=== PATIENT | male | born 1980 | race Asian ===

== ENCOUNTER 2025-09-19 16:18 | Outpatient (AMB) | payer OTHER, SELFPAY ==
[2025-09-19 16:39] VITALS: BP 142/98; PULSE 85; TEMP 36.3; O2SAT 97; BMI 29.2
--- NOTE | 2025-09-19 16:39 | MHC.PC.OV ---
Vital Signs 09/19/25 16:39 Height 5 ft 11 in Weight 209 lb 6 oz BMI 29.2 BP 142/98 H Blood Pressure Location Lt brachial Position Sitting Pulse 85 Pulse Source Pulse Oximeter Temp 97.3 F Temp Source Temporal Artery Scan Pulse Oximetry (%) 97 Oxygen Delivery Method Room Air Intake Visit Reasons: NEW PATIENT HYPERTENSION Allergies ibuprofen Allergy (Intermediate, Verified 09/19/25 16:42) Facial Swelling Medication List - Last Reconciled 09/19/25 by Goran Ragland MD amlodipine 5 mg (2 x 2.5 mg) PO DAILY Tobacco use date assessed: 09/19/25 Dental Screening Dental Screen Date: 09/19/25 Did you have a dental visit in the last 12 months?: Yes Did you have a dental problem in the last 6 months where you did not have access to dental care?: No Was dental information given to patient?: Patient has dentist HPI HPI Comments History of Present Illness Details 45-year-old male with PMH of retinal tear, HTN presenting to [facility] care and manage his elevated blood pressure. He was diagnosed with hypertension 4-5 years ago with initial symptoms of headache and head heaviness. He was first treated with losartan 25 mg, which was increased to 50 mg without relief. His medication was then changed to a combination of indapamide, enalapril, and amlodipine, which successfully lowered his blood pressure to approximately 117/70 mmHg. [place] moving [place] the [place] in February 2023, he was switched to amlodipine 5 mg with hydrochlorothiazide 25 mg, which was later reduced to amlodipine 2.5 mg and hydrochlorothiazide 12.5 mg, and then to amlodipine 2.5 mg monotherapy. He reports that for the past month his blood pressure has been rising, and he has been experiencing headaches for the past 3-4 days. He has taken Tylenol for the headache with some relief. The patient has a history of a retinal tear in 2004 or 2005 and has been undergoing biannual retinal check-ups since. He has no family history of colon cancer. His vaccinations are up-to-date from [place] and were supplemented with COVID-19 vaccinations in the [place] in 2022. [facility] Surgical History (Updated 09/19/25 @ 16:44 by Arianna Salas CMA) No pertinent past surgical history Family History (Updated 09/19/25 @ 16:45 by Arianna Salas CMA) Father Squamous cell carcinoma of tongue Hypertension Mother Hypertension Social History (Updated 09/19/25 @ 16:44 by Arianna Salas CMA) Household Members: None Housing: Apartment Alcohol intake: never Patient Tobacco Use Status: Never used Tobacco e-Cigarette/Vaping Use: Never Used Use of substances other than those prescribed or required for medical reasons: No service: No Current occupational status: employed Current occupation: Dentist Cognitive needs: No Hearing needs: No Vision needs: Yes Questionnaire PHQ-9 Over the last 2 weeks, how often have you been bothered by any of the following problems? 1. Little interest or pleasure in doing things: not at all 2. Feeling down, depressed, or hopeless: not at all 3. Trouble falling or staying asleep, or sleeping too much: not at all 4. Feeling tired or having little energy: several days 5. Poor appetite or overeating: not at all 6. Feeling bad about yourself - or that you are a failure or have let yourself or your family down: not at all 7. Trouble concentrating on things, such as reading the newspaper or watching television: not at all 8. Moving or speaking so slowly that other people could have noticed. Or the opposite - being so fidgety or restless that you have been moving around a lot more than usual: not at all 9. Thoughts that you would be better off or of hurting yourself in some way: not at all Total score: 1 Depression Screening Interpretation: Positive Depression Screening Done: Yes 96254 - PHQ-9 Billing: Yes Source: Developed by Drs. Ricardo Petty, Rosemary Slater, Ramirez Esqueda and colleagues, with an educational jessenia from [employer]. Thrive Questionnaire Date Thrive assessed: 09/03/25 I am a: Patient What is your living situation today?: I have a steady place to live Within the past 12 months, did the food you bought not last and you didn't have the money to get more?: Never true Within the past 12 months, did you worry whether your food would run out before you got money to buy more?: Never true Do you have trouble paying for medicines?: No Do you have trouble getting transportation to medical appointments?: No Do you have trouble paying your heating and electricity bill?: No Do you have trouble taking care of your child, family member or friend?: No Do you have trouble with day-to-day activities such as bathing, preparing meals, shopping, managing finances, etc.?: No Are you currently unemployed and looking for a job?: No Are you interested in more education?: No Please select the resources that you would like help with: None Currently or been in a relationship where the following occur: No concerns reported THRIVE Score: 0 AUDIT C Alcohol Use Questionnaire (AUDIT-C) 1. How often do you have a drink containing alcohol?: Never 3. How often do you have six or more drinks on one occasion?: Never Total Score: 0 LUNA-7 AMB Questionnaire LUNA-7 Date LUNA - 7 assessed: 09/19/25 Feeling nervous, anxious, or on edge: 0 = Not at all Not being able to stop or control worryin = Not at all Worrying too much about different things: 0 = Not at all Trouble relaxin = Not at all Being so restless that it is hard to sit still: 0 = Not at all Becoming easily annoyed or irritable: 0 = Not at all Feeling afraid as if something awful might happen: 0 = Not at all Total LUNA-7 score (0-4 normal; 5-9 mild; 10-14 moderate; 15-21 severe): 0 Source: Developed by Drs. Ricardo Petty, Rosemary Slater, Ramirez Esqueda and colleagues, with an educational jessenia from [employer]. LUNA-7 Assessment Billing LUNA-7 Assessment Tool: LUNA-7 Assessment 50490 Review of Systems Const Details: As per HPI. Physical exam (Primary Care) Vital Signs: Last Vital Signs Temp 97.3 F 09/19/25 16:39 Pulse 85 09/19/25 16:39 BP 142/98 H 09/19/25 16:39 Pulse Ox 97 09/19/25 16:39 Oxygen Delivery Method Room Air 09/19/25 16:39 BMI result Body Mass Index 29.2 Tobacco/Smoking Status: Tobacco use Status Tobacco use date assessed 09/19/25 09/19/25 16:46 Patient Tobacco Use Status Never used Tobacco 09/19/25 16:46 e-Cigarette/Vaping Use Never Used 11/13/25 16:46 PHQ-9: PHQ-9 Score PHQ-9: Total score 1 09/19/25 16:46 Depression Screening Interpretation: Positive Thrive Assessment: Date of Thrive Assessment Date Thrive assessed 09/03/25 09/19/25 16:46 Currently or been in a relationship where the following occur: No concerns reported Const Other: Pertinent findings are in BOLD GENERAL APPEARANCE NAD, activity normal for age, well developed/ well nourished, no cyanosis, pallor, or diaphoresis. EYES lids/conjunctiva normal. EARS/NOSE/THROAT Mucous membranes moist, nares normal, lips/teeth normal uvula midline without oral pharyngeal erythema, exudate or swelling TMs normal bilaterally. No lymphangitis/lymphedema. HEAD/NECK normocephalic atraumatic, no facial trauma, neck is supple. RESPIRATORY respiratory effort normal, speaks in full sentences, no tripod position, no accessory muscle use. Lungs clear to auscultation without rhonchi, wheezes, rales CARDIAC Regular rate and rhythm, no edema. ABDOMINAL Soft, ND/NT. No evidence of fluid wave. No pulsatile masses on exam, rebound tenderness, Espinoza sign or pain over Mcburney's point. MUSCLES/EXTREMITIES No abnormal range of motion, no swelling. SKIN Warm, pink and dry. No rashes, dermatoses, petechiae or lesions. NEUROLOGICAL Speech is clear and appropriate. Normal level of consciousness. Gait and coordination are normal. 5/5 strength in all extremities. PSYCH Normal mood and affect. Judgement/competence is appropriate Coding Level of Care Code New Pt Level 4 (52540) Diagnoses Retinal tear, unspecified laterality H33.319 Laterality: unspecified laterality Healthcare maintenance Z00.00 Primary hypertension I10 Hypertension type: primary hypertension Episodic tension-type headache, not intractable G44.219 Headache type: tension-type Headache chronicity pattern: episodic headache Intractability: not intractable Additional Codes LUNA-7 Assessment Billing - LUNA-7 Assessment Tool: LUNA-7 Assessment 98522 ([id number]) PHQ-9 - 99896 - PHQ-9 Billing: Yes ([id number]) Time Spent (min) 45 Assessment & Plan Assessment & Plan (1) Retinal tear: Code(s): H33.319 - Horseshoe tear of retina without detachment, unspecified eye Category: Medical Qualifiers: Laterality: unspecified laterality Qualified Code(s): H33.319 - Horseshoe tear of retina without detachment, unspecified eye Plan: Patient requested referral to Ophthalmology Rosalinda Mcallister. Order placed. He needs retinal exam every 6 months. (2) Healthcare maintenance: Code(s): Z00.00 - Encounter for general adult medical examination without abnormal findings Category: Medical Plan: Will check it next month. Patient reports getting all his vaccines recently in [place]. (3) HTN (hypertension): Code(s): I10 - Essential (primary) hypertension Category: Medical Qualifiers: Hypertension type: primary hypertension Qualified Code(s): I10 - Essential (primary) hypertension Plan: - Increase amlodipine to 5 mg daily. - Patient advised to continue monitoring blood pressure at home and maintain a log. - Follow up in one month to review blood pressure control. (4) Headache: Code(s): R51.9 - Headache, unspecified Category: Medical Qualifiers: Headache type: tension-type Headache chronicity pattern: episodic headache Intractability: not intractable Qualified Code(s): G44.219 - Episodic tension-type headache, not intractable Plan: Continue Tylenol PRN. Plan I discussed with the patient his recent increase in blood pressure readings. We will increase his amlodipine dose to 5 mg daily and he will continue to monitor his blood pressure at home, keeping a log for our review. For his headaches, I advised him to continue using Tylenol as needed. I will order general blood work and provide a referral to an lead bi developer for a retinal exam, as he requested. We will have him follow up in one month to check his blood pressure, review lab results, and discuss his vaccination status after reviewing his records. Orders: Orders Comprehensive Met. Panel Today Z00.00 - Encounter for general adult medical examination without abnormal findings Lipid Panel Today Z00.00 - Encounter for general adult medical examination without abnormal findings HIV Ab/Ag Today Z00.00 - Encounter for general adult medical examination without abnormal findings Complete Blood Count no Diff Today Z00.00 - Encounter for general adult medical examination without abnormal findings Hemoglobin A1c Today Z00.00 - Encounter for general adult medical examination without abnormal findings Vitamin D 25-OH Total Today Z00.00 - Encounter for general adult medical examination without abnormal findings TSH reflex Free T4 Today Z00.00 - Encounter for general adult medical examination without abnormal findings UA and rflx microscopic Today Z00.00 - Encounter for general adult medical examination without abnormal findings Referrals Ophthalmology Referral H33.319 - Horseshoe tear of retina without detachment, unspecified eye, Z00.00 - Encounter for general adult medical examination without abnormal findings Medications: New amlodipine 5 mg (2 x 2.5 mg) PO DAILY 30 tabs 3RF
== END 2025-09-19 17:18 | disposition home or self-care (01) ==
LOC: HO.HMCH 16:19
PROVIDERS: Visit Provider Internal Medicine
DX: H33.319 Horseshoe tear of retina without detachment, unspecified eye (principal); Z00.00 Encounter for general adult medical examination without abnormal findings; I10 Essential (primary) hypertension; G44.219 Episodic tension-type headache, not intractable

== ENCOUNTER → 2025-09-19 16:18 | Outpatient (BNVA) | payer OTHER, SELFPAY | PROVIDERS: Visit Provider Internal Medicine | DX: Z00.00 Encounter for general adult medical examination without abnormal findings (principal); I10 Essential (primary) hypertension; G44.219 Episodic tension-type headache, not intractable; Z79.899 Other long term (current) drug therapy; Z86.69 Personal history of other diseases of the nervous system and sense organs | CPT/HCPCS: 96127 ==

== ENCOUNTER 2025-10-18 07:55 | Outpatient (REF) | payer OTHER, SELFPAY ==
[2025-10-18 08:51] LABS: Appearance Urine Clear; Glucose Urine UA Negative (Negative); PH 6.5 (5.0-9.0); Specific Gravity - Urine 1.020 (1.005-1.025)
[2025-10-18 09:00] LABS: Hematocrit 45.2 % (42.0-52.0); Hemoglobin 14.3 g/dl (14.0-18.0); Mean Corpuscular HGB Conc 31.6 g/dl (31.0-36.0); Mean Corpuscular Hemoglobin 27.0 pg (27.0-33.0); Mean Corpuscular Volume 85.4 fL (80.0-98.0); NRBC Abs Auto 0.000 X10*3/uL (0.0-0.012); NRBC Pct Auto 0.0 /100WBC (0.0-0.2); Platelet Count 317 X10*3/uL (160-400); Red Blood Count 5.29 X10*6/uL (4.60-5.80); White Blood Count 6.8 X10*3/uL (4.8-10.8)
[2025-10-18 09:50] LABS: HIV Num 1 0.08 S/CO (0.00-0.99)
[2025-10-18 09:55] LABS: Alanine Aminotransferase 28 U/L (0-40); Albumin Level 4.9 g/dL (3.5-5.0); Alkaline Phosphatase 100 U/L (39-117); Anion Gap 11 (12-20); Aspartate Amino Transferase 25 U/L (5-37); Blood Urea Nitrogen 16 mg/dL (9-16); Calcium 9.1 mg/dL (8.4-10.2); Carbon Dioxide 27 mmol/L (22-29); Chloride 109 mmol/L (96-108); Cholesterol 202 mg/dL (<200); Estimated Glomerular Filt Rate > 60; HDL Cholesterol 45 mg/dL (>40); Potassium 4.1 mmol/L (3.3-5.1); Sodium 143 mmol/L (135-145); Total Protein 7.8 g/dL (6.5-8.0); Triglycerides 73 mg/dL (<150)
== END 2025-10-18 07:56 | disposition home or self-care (01) ==
LOC: HO.LAB 07:55
PROVIDERS: PCP Internal Medicine; Visit Provider Internal Medicine
DX: Z00.00 Encounter for general adult medical examination without abnormal findings (principal); Z11.4 Encounter for screening for human immunodeficiency virus [HIV]; Z13.0 Encounter for screening for diseases of the blood and blood-forming organs and certain disorders involving the immune mechanism; Z13.29 Encounter for screening for other suspected endocrine disorder; Z13.1 Encounter for screening for diabetes mellitus; Z13.6 Encounter for screening for cardiovascular disorders; Z13.21 Encounter for screening for nutritional disorder
CPT/HCPCS: 36415; 80053; 80061; 81003; 82306; 83036; 84443; 85027; 87389

== ENCOUNTER 2025-10-24 08:26 | Outpatient (AMB) | payer OTHER, SELFPAY ==
--- NOTE | 2025-10-24 08:44 | MHC.PC.OV ---
Vital Signs 10/24/25 08:48 Weight 205 lb BP 170/82 H Blood Pressure Location Lt brachial Position Sitting Respiration 12 Pulse 72 Pulse Source Pulse Oximeter Temp 97.5 F Temp Source Tympanic Pulse Oximetry (%) 97 Oxygen Delivery Method Room Air Intake Visit Reasons: follow up BP Allergies ibuprofen Allergy (Intermediate, Verified 10/24/25 08:46) Facial Swelling Medication List - Last Reconciled 10/24/25 by Goran Ragland MD amlodipine 5 mg PO DAILY Tobacco use date assessed: 09/19/25 Dental Screening Dental Screen Date: 09/19/25 HPI HPI Comments History of Present Illness Details The patient is a 45 year old male with PMH of retinal, HTN presenting for follow-up for management of elevated blood pressure. He has been monitoring his blood pressure at home since his last visit on September 19 and reports that initial readings were in the high 150s systolic and high 90s diastolic. The readings gradually decreased to 140s/90s, with his lowest recorded measurement being 135/85 mmHg. Regarding his history of a retinal tear, he has not yet seen the victims advocate clerk/specialist because a referral from an boiler operators supervisor is required. He has scheduled an boiler operators supervisor appointment for November to facilitate the specialty consultation. A review of labs from the prior visit revealed a total cholesterol of 202 mg/dL with an LDL of 143 mg/dL. His TSH was normal at 1.3, CBC was normal, and HIV test was negative. His vitamin D level was low at 20.2, and he has begun taking an [id number] 60,000 IU vitamin D supplement weekly. The patient reports that he has stopped his walking routine due to the cold weather. [facility] Surgical History (Updated 09/19/25 @ 16:44 by Arianna Salas CMA) No pertinent past surgical history Family History (Updated 09/19/25 @ 16:45 by Arianna Salas CMA) Father Squamous cell carcinoma of tongue Hypertension Mother Hypertension Social History (Updated 09/19/25 @ 16:44 by Arianna Salas CMA) Household Members: None Housing: Apartment Alcohol intake: never Patient Tobacco Use Status: Never used Tobacco e-Cigarette/Vaping Use: Never Used service: No Current occupational status: employed Current occupation: Dentist Cognitive needs: No Hearing needs: No Vision needs: Yes Questionnaire Thrive Questionnaire Date Thrive assessed: 09/03/25 I am a: Patient What is your living situation today?: I have a steady place to live Within the past 12 months, did the food you bought not last and you didn't have the money to get more?: Never true Within the past 12 months, did you worry whether your food would run out before you got money to buy more?: Never true Do you have trouble paying for medicines?: No Do you have trouble getting transportation to medical appointments?: No Do you have trouble paying your heating and electricity bill?: No Do you have trouble taking care of your child, family member or friend?: No Do you have trouble with day-to-day activities such as bathing, preparing meals, shopping, managing finances, etc.?: No Are you currently unemployed and looking for a job?: No Are you interested in more education?: No Please select the resources that you would like help with: None Currently or been in a relationship where the following occur: No concerns reported THRIVE Score: 0 LUNA-7 AMB Questionnaire LUNA-7 Date LUNA - 7 assessed: 09/19/25 Source: Developed by Drs. Ricardo Petty, Rosemary Slater, Ramirez Esqueda and colleagues, with an educational jessenia from [employer] Review of Systems Const Details: As per HPI. Physical exam (Primary Care) Vital Signs: Last Vital Signs Temp 97.5 F 10/24/25 08:48 Pulse 72 10/24/25 08:48 Resp 12 10/24/25 08:48 BP 170/82 H 10/24/25 08:48 Pulse Ox 97 10/24/25 08:48 Oxygen Delivery Method Room Air 10/24/25 08:48 Tobacco/Smoking Status: Tobacco use Status Tobacco use date assessed 09/19/25 10/24/25 08:46 Patient Tobacco Use Status Never used Tobacco 10/24/25 08:46 e-Cigarette/Vaping Use Never Used 10/24/25 08:46 Thrive Assessment: Date of Thrive Assessment Date Thrive assessed 09/03/25 10/24/25 08:46 Currently or been in a relationship where the following occur: No concerns reported Const Other: Pertinent findings are in BOLD GENERAL APPEARANCE NAD, activity normal for age, well developed/ well nourished, no cyanosis, pallor, or diaphoresis. EYES lids/conjunctiva normal. EARS/NOSE/THROAT Mucous membranes moist, nares normal, lips/teeth normal uvula midline without oral pharyngeal erythema, exudate or swelling TMs normal bilaterally. No lymphangitis/lymphedema. HEAD/NECK normocephalic atraumatic, no facial trauma, neck is supple. RESPIRATORY respiratory effort normal, speaks in full sentences, no tripod position, no accessory muscle use. Lungs clear to auscultation without rhonchi, wheezes, rales CARDIAC Regular rate and rhythm, no edema. ABDOMINAL Soft, ND/NT. No evidence of fluid wave. No pulsatile masses on exam, rebound tenderness, Espinoza sign or pain over Mcburney's point. MUSCLES/EXTREMITIES No abnormal range of motion, no swelling. SKIN Warm, pink and dry. No rashes, dermatoses, petechiae or lesions. NEUROLOGICAL Speech is clear and appropriate. Normal level of consciousness. Gait and coordination are normal. 5/5 strength in all extremities. PSYCH Normal mood and affect. Judgement/competence is appropriate Coding Level of Care Code Est Pt Level 4 (04383) Diagnoses Primary hypertension I10 Hypertension type: primary hypertension Retinal tear, unspecified laterality H33.319 Laterality: unspecified laterality Elevated cholesterol E78.00 Vitamin D deficiency E55.9 Time Spent (min) 20 Assessment & Plan Assessment & Plan (1) HTN (hypertension): Code(s): I10 - Essential (primary) hypertension Category: Medical Qualifiers: Hypertension type: primary hypertension Qualified Code(s): I10 - Essential (primary) hypertension Plan: - Patient's blood pressure remains elevated, with home readings up to the 150s/90s and an in-office reading of 170/82 mmHg. - He reports no associated symptoms like chest pain or headache. - Due to persistent elevations, a second medication will be added to his regimen. - Prescribed lisinopril 5 mg daily, to be taken along with his current amlodipine. - Patient advised to continue monitoring his blood pressure with a log at home. - Follow-up scheduled in 6 weeks to re-evaluate blood pressure control. (2) Retinal tear: Code(s): H33.319 - Horseshoe tear of retina without detachment, unspecified eye Category: Medical Qualifiers: Laterality: unspecified laterality Qualified Code(s): H33.319 - Horseshoe tear of retina without detachment, unspecified eye Plan: - The patient has a history of a retinal tear and needs to see an victims advocate clerk/specialist. - Plan is for the patient to proceed with his scheduled boiler operators supervisor appointment in November to obtain the necessary referral for ophthalmology follow-up. (3) Elevated cholesterol: Code(s): E78.00 - Pure hypercholesterolemia, unspecified Category: Medical Plan: - Recent labs showed elevated total cholesterol at 202 mg/dL and LDL at 143 mg/dL. - Based on the patient's ASCVD risk score, 3.4% statin therapy is not currently recommended. - The plan is to continue monitoring and focus on lifestyle modifications. - Advised the patient on dietary changes, specifically reducing the intake of fat and sugar. (4) Vitamin D deficiency: Code(s): E55.9 - Vitamin D deficiency, unspecified Category: Medical Plan: - Lab results showed a low vitamin D level of 20.2. - The patient is already taking an [id number] vitamin D supplement, 60,000 IU once a week. - Plan is for the patient to continue with his current supplementation regimen. Plan I discussed with the patient his persistent hypertension, despite being on amlodipine. I explained that adding a second medication is often a better strategy than increasing the dose of a single agent, and we will be starting lisinopril 5 mg daily. We reviewed his lab results, noting his high cholesterol; however, I informed him that his calculated ASCVD risk score does not currently warrant starting a statin, and we will instead focus on diet and lifestyle changes, particularly reducing fat and sugar. I also noted his low vitamin D level and confirmed that he is appropriately supplementing with a weekly high-dose vitamin D. We confirmed his plan to see an boiler operators supervisor in November to secure a referral for his retinal tear. I instructed him to continue logging his blood pressure and to return for a follow-up visit in six weeks, with a general physical to be scheduled in about six months. Medications: New lisinopril 5 mg PO DAILY 30 tabs 3RF
[2025-10-24 08:48] VITALS: BP 170/82; PULSE 72; RESP 12; TEMP 36.4; O2SAT 97
== END 2025-10-24 09:06 | disposition home or self-care (01) ==
LOC: HO.HMCH 08:27
PROVIDERS: PCP Internal Medicine; Visit Provider Internal Medicine
DX: I10 Essential (primary) hypertension (principal); H33.319 Horseshoe tear of retina without detachment, unspecified eye; E78.00 Pure hypercholesterolemia, unspecified; E55.9 Vitamin D deficiency, unspecified